=== PATIENT | male | born 1950 | race Caucasian/White ===

== ENCOUNTER → 2023-04-02 | Day surgery (SDC) | payer MEDICARE, BC ==
[~2023-04-02] VITALS: Ht 167.6 cm; Wt 79.4 kg
[~2023-04-02] MED LIST: ANGIOMAX 250 MG VIAL IV ONE; ASPI-498 OR; ASPirin 325 MG TAB ONE; ATOR80TA PO; ATROPINE SULF 1 MG/10ml SYR ONE; CHOL500035 PO; CLOPIDOGREL 300 MG TAB ONE; HEPARIN SODIUM (PORCINE) 5000 UNITS/ML 1ML VIAL ONE; IODIXANOL 320MG/ML 100ML BTL IV ONE; LANS30CA57 PO; LEVO25TA6 PO; LIDOCAINE 2%HCL (LOCAL ANESTH.) INJ 20ML MDV ONE; MELO-335 PO; MIDAZOLAM HCL 2MG/2ML 2ml VIAL (1mg/ml) ONE; SILD100T57 PO; SITA50TA PO; SODIUM CHL 0.9% 50 ML ONE; VERAPAMIL 2.5MG/ML INJ 2ML VIAL IV ONE; ZINC1TAB4 PO; fentaNYL CITRATE 100 MCG/2 ML VL ONE
[2023-04-02 08:34] LABS: Basophils # (auto) 0 10 ^3/uL (0-0.2); Basophils % (auto) 0.5 % (0.0-2.0); Eosinophils # (auto) 0.1 10 ^3/uL (0-0.8); Eosinophils % (auto) 1.7 % (0.0-7.0); Hematocrit 47.3 % (41.0-53.0); Hemoglobin 16.1 g/dL (13.5-17.5); Lymphocytes # (auto) 1.2 10 ^3/uL (0.4-5.4); Lymphocytes % (auto) 17.4 % (10.0-50.0); Mean Corpuscular Hemoglobin 31.6 pg (28.0-32.0); Mean Corpuscular Hgb Conc. 33.9 g/dL (32.0-36.0); Mean Corpuscular Volume 93.2 fL (80.0-100.0); Monocytes # (auto) 0.6 10 ^3/uL (0-1.3); Monocytes % (auto) 8.3 % (0.0-12.0); Neutrophils % (auto) 72.1 % (37.0-80.0); Nucleated Red Blood Cells % 0.1 %; Red Blood Cells 5.08 10^6/uL (4.5-5.90); Red Cell Distribution Width 13.8 % (11.8-14.3)
[2023-04-02 08:59] LABS: BUN/Creatinine Ratio 19.6 (10.0-20.0); Calcium 9.1 mg/dL (8.5-10.1); Potassium 4.4 mmol/L (3.5-5.1)
[2023-04-02 09:05] LABS: INR 1.04 (0.9-1.15); Prothrombin Time 10.9 sec (9.3-11.8)
== END | disposition home or self-care (01) ==
LOC: EDSTATUS 07:33 → CATH 07:49
PROVIDERS: ATTEND Specialist
DX: I25.10 Atherosclerotic heart disease of native coronary artery without angina pectoris (principal); T82.855A Stenosis of coronary artery stent, initial encounter; Y83.8 Other surgical procedures as the cause of abnormal reaction of the patient, or of later complication, without mention of misadventure at the time of the procedure; R06.02 Shortness of breath; I10 Essential (primary) hypertension; Z79.899 Other long term (current) drug therapy; Z79.82 Long term (current) use of aspirin; Z98.890 Other specified postprocedural states
CPT/HCPCS: 36415; 71045; 80048; 85025; 85610; 93460; C1725; C1757; C1769; C1874; C1887; C1894; C9600; J0583; J1644; J2250; J3010; Q9967; 93005; 99152; 99153